=== PATIENT | female | born 1980 | race African-American/Black ===

== ENCOUNTER 2018-02-20 13:15 | Inpatient (IN) | payer OTHER ==
[2018-02-20] MEDS ORDERED: ONDANSETRON 4 MG INJ IV (15:00)
[2018-02-20] MEDS ORDERED: morphine 2 MG INJ IV (15:00)
[2018-02-20] MEDS ORDERED: NACL 0.9% 3 ML SYG IV ×2 (15:00)
[2018-02-20] MEDS: DEXTROSE 5%-0.45% NACL 1,000 ML IV (15:10)
[2018-02-20] MEDS ORDERED: GLUCAGON 1 MG INJ IM (16:30)
[2018-02-20] MEDS ORDERED: GLUCOSE GEL 15 GRAM TUBE BUCCAL (16:30)
[2018-02-20] MEDS ORDERED: DEXTROSE 50% 50 ML SYRINGE IV ×2 (16:30)
[2018-02-20] MEDS ORDERED: GLUCOSE GEL 15 GRAM TUBE PO ×2 (16:30)
[2018-02-20] MEDS: hydrOXYzine HCL 25 MG TAB PO (17:45)
[2018-02-20] MEDS: INSULIN ASPART [NOVOLOG] 3 ML PEN SC ×2 (17:58→20:24)
[2018-02-20] MEDS: ATORVASTATIN 10 MG TAB PO (20:19)
[2018-02-20] MEDS: DIPHENHYDRAMINE 50 MG INJ IV (20:19)
[2018-02-21] MEDS: DEXTROSE 5%-0.45% NACL 1,000 ML IV ×3 (00:52→15:23)
[2018-02-21] MEDS: INSULIN ASPART [NOVOLOG] 3 ML PEN SC ×4 (01:00→13:35)
[2018-02-21] MEDS: DIPHENHYDRAMINE 50 MG INJ IV ×4 (01:36→18:06)
[2018-02-21] MEDS: morphine SULFATE/PF (2 MG/2 ML) SYG IV ×4 (01:49→18:06)
[2018-02-21] MEDS ORDERED: ACCU-CHEK XX (02:00)
[2018-02-21 06:01] LABS: ADD MAN DIFF? NO
[2018-02-21 06:03] LABS: BASOPHILS % 0.2 % (0.0-2.0); EOSINOPHILS # 0.4 10^3/ul (0.0-0.5); EOSINOPHILS % 4.7 % (0.0-7.0); HEMOGLOBIN 12.4 g/dl (12.0-16.0); LYMPHOCYTES # 2.4 10^3/ul (0.8-2.9); LYMPHOCYTES % 26.2 % (15.0-51.0); MEAN CORPUSCULAR HEMOGLOBIN 26.7 pg (29.0-33.0); MEAN PLATELET VOLUME 11.8 fl (7.4-10.4); MONOCYTE # 0.7 10^3/ul (0.3-0.9); MONOCYTES % 7.7 % (0.0-11.0); NEUTROPHIL # 5.7 10^3/ul (1.6-7.5); PLATELET COUNT 282 10^3/UL (140-415); RED BLOOD COUNT 4.65 10^6/ul (4.20-5.40); RED CELL DISTRIBUTION WIDTH 12.5 % (11.5-14.5)
[2018-02-21 06:03] LABS: WHITE BLOOD COUNT 9.3 10^3/ul (4.8-10.8)
[2018-02-21 06:24] LABS: HEMOGLOBIN A1C 10.1 % (0-5.9)
[2018-02-21 06:30] LABS: CHOL/HDL RATIO 4.4 RATIO; HDL CHOLESTEROL 35 mg/dl (34-82); LDL CHOLESTEROL,CALCULATED 91 mg/dl; TRIGLYCERIDES 151 mg/dl (0-149)
[2018-02-21 06:30] LABS: CHOLESTEROL 156 mg/dl (100-200)
[2018-02-21 06:46] LABS: MAGNESIUM 1.9 mg/dl (1.7-2.5)
[2018-02-21 06:46] LABS: PHOSPHORUS 3.3 mg/dl (2.5-4.9)
[2018-02-21 06:47] LABS: ALANINE AMINOTRANSFERASE 21 IU/L (13-69); ALBUMIN 3.5 g/dl (3.3-4.9); ALBUMIN/GLOBULIN RATIO 1.25; ALKALINE PHOSPHATASE 88 IU/L (42-121); ANION GAP 12 (5-13); ASPARTATE AMINO TRANSFERASE 14 IU/L (15-46); BILIRUBIN,INDIRECT 0.4 mg/dl (0-1.1); BILIRUBIN,TOTAL 0.4 mg/dl (0.2-1.3); BLOOD UREA NITROGEN 6 mg/dl (7-20); CALCIUM 8.6 mg/dl (8.4-10.2); CARBON DIOXIDE 27 mmol/L (21-31); CHLORIDE 103 mmol/L (97-110); CREATININE 0.57 mg/dl (0.44-1.00); Estimated GFR > 60 mL/min (>60); GLUCOSE 217 mg/dl (70-220); LIPASE 58 U/L (23-300); POTASSIUM 3.8 mmol/L (3.5-5.1); SODIUM 142 mmol/L (135-144); TOTAL PROTEIN 6.3 g/dl (6.1-8.1)
[2018-02-21] MEDS: LISINOPRIL 5 MG TAB PO (08:19)
[2018-02-21] MEDS: CITALOPRAM 20 MG TAB PO (08:19)
[2018-02-21 13:57] LABS: LIPASE 110 U/L (23-300)
[2018-02-21] MEDS: Insulin NOVOLOG SS MILD Algorithm (SS with meals and bedtime) SC ×2 (17:50→21:06)
[2018-02-21] MEDS ORDERED: INSULIN ASPART [NOVOLOG] 3 ML PEN SC (18:00)
[2018-02-21] MEDS: ATORVASTATIN 10 MG TAB PO (20:56)
[2018-02-22] MEDS: morphine SULFATE/PF (2 MG/2 ML) SYG IV ×4 (00:05→13:05)
[2018-02-22] MEDS: DIPHENHYDRAMINE 50 MG INJ IV ×4 (00:05→13:04)
[2018-02-22] MEDS: ACCUCHECK AT 2AM (Patients on SS coverage) XX (02:54)
[2018-02-22] MEDS: PANTOPRAZOLE 40 MG INJ IV (06:29)
[2018-02-22 06:33] LABS: ALANINE AMINOTRANSFERASE 21 IU/L (13-69); ALBUMIN 3.3 g/dl (3.3-4.9); ALKALINE PHOSPHATASE 92 IU/L (42-121); AMYLASE 46 U/L (11-123); ASPARTATE AMINO TRANSFERASE 17 IU/L (15-46); BILIRUBIN,INDIRECT 0.2 mg/dl (0-1.1); BILIRUBIN,TOTAL 0.2 mg/dl (0.2-1.3); TOTAL PROTEIN 5.9 g/dl (6.1-8.1)
[2018-02-22] MEDS: Insulin NOVOLOG SS MILD Algorithm (SS with meals and bedtime) SC ×2 (08:28→13:07)
[2018-02-22] MEDS: CITALOPRAM 20 MG TAB PO (08:30)
[2018-02-22] MEDS: LISINOPRIL 5 MG TAB PO (08:30)
== END 2018-02-22 16:50 | disposition home or self-care (01) | DRG 391 ==
LOC: 2NE 02-22 10:13
PROVIDERS: Internal Medicine Nephrology
DX: K52.9 Noninfective gastroenteritis and colitis, unspecified (principal); K85.90 Acute pancreatitis without necrosis or infection, unspecified; Z68.42 Body mass index [BMI] 45.0-49.9, adult; I10 Essential (primary) hypertension; E78.5 Hyperlipidemia, unspecified; K76.0 Fatty (change of) liver, not elsewhere classified; E11.65 Type 2 diabetes mellitus with hyperglycemia; E66.9 Obesity, unspecified; Z79.84 Long term (current) use of oral hypoglycemic drugs
CPT/HCPCS: 80053; 80061; 80076; 82150; 82962; 83036; 83690; 83735; 84100; 85025